=== PATIENT | male | born 1960 | race Two or more races ===

== ENCOUNTER 2023-11-08 09:33 | Day surgery (SDC) | payer OTHER ==
[~2023-11-08] VITALS: Ht 414 cm; Wt 63.5 kg
[~2023-11-08 09:33] MED LIST: AMLODIPINE BESYL5 MG PO
[2023-11-08] MEDS ORDERED: LACTATED RINGER'S 1,000 ML IV ONE (11:35)
[2023-11-08] MEDS ORDERED: PROPOFOL 200 MG/20 ML VIAL IV ONE (12:45)
[2023-11-08] MEDS ORDERED: GLYCOPYRROLATE 0.2 MG/ML IV ONE (12:45)
[2023-11-08] MEDS ORDERED: LIDOCAINE HCL 2% 2ML SDV IV ONE (12:45)
[2023-11-08 13:06] VITALS: BP 136/88
== END 2023-11-08 13:23 | disposition home or self-care (01) | DRG 951 ==
LOC: ENDO 09:33
PROVIDERS: ATTEND Internal Medicine Gastroenterology
PROC: 0DJD8ZZ Inspection of Lower Intestinal Tract, Via Natural or Artificial Opening Endoscopic (ICD-10-PCS; principal; 2023-11-08)
DX: Z12.11 Encounter for screening for malignant neoplasm of colon (principal)